=== PATIENT | female | born 1960 | race Caucasian/White ===

== ENCOUNTER → 2021-01-03 | Outpatient (REF) | payer MEDICARE, MEDICAID ==
[2021-01-03 18:20] LABS: AMORPHOUS SEDIMENT SMALL (NEGATIVE); BACTERIA, URINE AUTO NEGATIVE (NEGATIVE); MUCUS, URINE SMALL (NEGATIVE); RBC, URINE AUTO 1 /HPF (0-3); SQUAMOUS EPITHELIAL CELL UR AU 2 /HPF (0-6); WBC, URINE AUTO 2 /HPF (0-3)
== END ==
LOC: M SMT 16:50
PROVIDERS: ATTEND Specialist
DX: N39.46 Mixed incontinence (principal)
CPT/HCPCS: 81015; 87088; G0463

== ENCOUNTER → 2021-05-09 | Outpatient (CLI) | payer MEDICARE, MEDICAID | LOC: M RAD 10:44 | PROVIDERS: ATTEND Internal Medicine Cardiovascular Disease | DX: R06.02 Shortness of breath (principal); R55 Syncope and collapse ==

== ENCOUNTER → 2021-11-28 | Outpatient (CLI) | payer MEDICARE, MEDICAID ==
[~2021-11-28] MED LIST: ISOVUE-300 61% 50ML VIAL As Ordered ONE; LIDOCAINE 1% MDV 20ML VIAL As Ordered ONE
== END ==
LOC: M RADPRO 08:55
PROVIDERS: ATTEND Physician Assistant
DX: R93.7 Abnormal findings on diagnostic imaging of other parts of musculoskeletal system (principal); M17.11 Unilateral primary osteoarthritis, right knee
CPT/HCPCS: 27369; 73580; 73701; Q9967

== ENCOUNTER → 2021-12-14 | Outpatient (CLI) | payer MEDICARE, MEDICAID ==
[~2021-12-14] MED LIST changes: +ADV250INH INH; +ALBU2.5V10 INH; +AMIT50TA PO; +AMLO1TAB24 PO; +ATOR80TA59 PO; +BUSP5TA PO; +DOXE10CO2 PO; +EFFE75CA2 PO; +FLUT15.820; +HYDR-3490 PO; +ISOS1TAB35 PO; -ISOVUE-300 61% 50ML VIAL As Ordered ONE; -LIDOCAINE 1% MDV 20ML VIAL As Ordered ONE; +LORA-243 PO; +MAGN200T PO; +METO1TAB7 PO; +NAPR-885 PO; +OMEP1CAP73 PO; +PROAAER10 INH; +SYNT50TA PO; +UBRO50TA PO
== END ==
LOC: M LABSMTC 10:19
PROVIDERS: ATTEND Anesthesiology
DX: Z11.52 Encounter for screening for COVID-19 (principal); Z20.822 Contact with and (suspected) exposure to COVID-19

== ENCOUNTER 2021-12-19 11:44 | Day surgery (SDC) | payer MEDICARE, MEDICAID ==
[~2021-12-19] VITALS: Ht 157.5 cm; Wt 102.0 kg
[~2021-12-19 11:44] MED LIST changes: +ceFAZolin SOD 2 GM in IV 1 EA IV ONE
[2021-12-19] MEDS ORDERED: LR 1,000 ML IV SCH (12:10)
[2021-12-19] MEDS ORDERED: LIDOCAINE 2% 100MG/5ML SDV (FOR ANES.) As Ordered ONE (14:46)
[2021-12-19] MEDS ORDERED: propofoL 200 MG/20 ML VIAL As Ordered ONE ×3 (14:46→16:39)
[2021-12-19] MEDS ORDERED: MIDAZOLAM INJ 2MG/2ML VIAL (J2250 PER 1MG) As Ordered ONE (14:46)
[2021-12-19] MEDS ORDERED: fentaNYL 100 MCG/2 ML INJECTION As Ordered ONE (14:46)
[2021-12-19] MEDS ORDERED: LIDOCAINE 1% SDV 30ML VIAL As Ordered ONE (14:47)
[2021-12-19] MEDS ORDERED: dexameTHASONE 4 MG/ML 1ML VIAL (J1100 PER 1MG) As Ordered ONE (15:59)
[2021-12-19] MEDS ORDERED: diphenhydrAMINE 50MG/ML VIAL (J1200) As Ordered ONE (16:00)
[2021-12-19] MEDS ORDERED: GENTAMICIN SULF 80MG/2ML VIAL As Ordered ONE (16:30)
[2021-12-19] MEDS ORDERED: KETOROLAC 60MG 2ML VIAL As Ordered ONE (17:05)
[2021-12-19 18:03] VITALS: BP 143/72
== END 2021-12-19 18:12 | disposition home or self-care (01) ==
LOC: M SDC 11:44
PROVIDERS: ATTEND Specialist
DX: R32 Unspecified urinary incontinence (principal); E07.9 Disorder of thyroid, unspecified; G43.909 Migraine, unspecified, not intractable, without status migrainosus; N18.2 Chronic kidney disease, stage 2 (mild); J45.909 Unspecified asthma, uncomplicated; E78.5 Hyperlipidemia, unspecified; I12.9 Hypertensive chronic kidney disease with stage 1 through stage 4 chronic kidney disease, or unspecified chronic kidney disease; Z87.891 Personal history of nicotine dependence; H81.10 Benign paroxysmal vertigo, unspecified ear; M85.80 Other specified disorders of bone density and structure, unspecified site; F31.9 Bipolar disorder, unspecified; M25.561 Pain in right knee; Z88.5 Allergy status to narcotic agent; Z79.899 Other long term (current) drug therapy; Z79.51 Long term (current) use of inhaled steroids; Z79.1 Long term (current) use of non-steroidal anti-inflammatories (NSAID); Z79.890 Hormone replacement therapy
CPT/HCPCS: 64585; 64590; 76000; 95971; C1778; C1785; C1787; C1897; J0690; J1100; J1200; J1580; J1885; J2250; J3010

== ENCOUNTER → 2022-03-24 | Outpatient (CLI) | payer MEDICARE, MEDICAID ==
[~2022-03-24] MED LIST changes: -ceFAZolin SOD 2 GM in IV 1 EA IV ONE
== END ==
LOC: M SLEEP HO 11:50
PROVIDERS: ATTEND Internal Medicine Cardiovascular Disease
DX: I27.23 Pulmonary hypertension due to lung diseases and hypoxia (principal)

== ENCOUNTER → 2022-09-18 | Outpatient (CLI) | payer MEDICARE, MEDICAID | LOC: M PLARAD 12:41 | PROVIDERS: ATTEND Physician Assistant | DX: M25.461 Effusion, right knee (principal); M94.261 Chondromalacia, right knee; M17.11 Unilateral primary osteoarthritis, right knee; M76.891 Other specified enthesopathies of right lower limb, excluding foot; S83.411A Sprain of medial collateral ligament of right knee, initial encounter; S83.241A Other tear of medial meniscus, current injury, right knee, initial encounter ==

== ENCOUNTER → 2022-11-27 | Outpatient (CLI) | payer MEDICARE, MEDICAID | LOC: M SOG 14:37 | PROVIDERS: ATTEND Orthopaedic Surgery | DX: M17.9 Osteoarthritis of knee, unspecified (principal); M25.461 Effusion, right knee; M25.462 Effusion, left knee ==

== ENCOUNTER → 2023-07-14 | Outpatient (CLI) | payer MEDICARE, MEDICAID | LOC: M SOG 08:04 | PROVIDERS: ATTEND Orthopaedic Surgery | DX: M17.11 Unilateral primary osteoarthritis, right knee (principal) ==

== ENCOUNTER → 2023-07-26 | Outpatient (CLI) | payer MEDICARE, MEDICAID | LOC: M RAD 16:16 | PROVIDERS: ATTEND Orthopaedic Surgery | DX: M17.11 Unilateral primary osteoarthritis, right knee (principal) ==

== ENCOUNTER 2023-08-09 09:02 | Observation (INO) | payer MEDICARE, MEDICAID ==
[~2023-08-09] VITALS: Ht 157.5 cm; Wt 95.1 kg
[2023-08-09] MEDS: ROPIVA 100MG/KETOR 15MG/EPINEPHRINE 0.3MG IN NS 50ML SYRINGE PA ONE (06:00)
[~2023-08-09 09:02] MED LIST changes: +BAYE81TA10 PO; +BUSP30TA PO; +DOXE10CA PO; +LEVO50TA5 PO; +MUCI600T31 PO; +OMEP-173 PO; +OMEP40CA5 PO; +SUMA50TA2 PO; +TRAM50TA2 PO; +TREL1AER INH; +VENL150C43 PO; +VENTAER INH
[2023-08-09] MEDS ORDERED: LR 1,000 ML IV SCH (09:05)
[2023-08-09] MEDS ORDERED: fentaNYL 100 MCG/2 ML INJECTION As Ordered ONE (10:31)
[2023-08-09] MEDS ORDERED: MIDAZOLAM INJ 2MG/2ML VIAL As Ordered ONE (10:31)
[2023-08-09] MEDS ORDERED: propofoL 200 MG/20 ML VIAL As Ordered ONE (10:32)
[2023-08-09] MEDS ORDERED: ONDANSETRON 4MG 2ML VIAL As Ordered ONE (10:32)
[2023-08-09] MEDS ORDERED: LIDOCAINE 2% 100MG/5ML SDV (FOR ANES.) As Ordered ONE (10:32)
[2023-08-09] MEDS ORDERED: SUGAMMADEX SODIUM 500 MG/5 ML VIAL (BRIDION) As Ordered ONE (10:32)
[2023-08-09] MEDS ORDERED: ROCURONIUM BROMIDE 50MG/5ML VIAL As Ordered ONE (10:32)
[2023-08-09] MEDS ORDERED: HYDROmorphone HCL 2MG/ML 1ML VIAL As Ordered ONE (10:34)
[2023-08-09] MEDS: ceFAZolin SOD 2 GM in IV 1 EA IV ONE (12:00)
[2023-08-09] MEDS: TRANEXAMIC ACID 100 MG/ML 10ML VIAL As Ordered ONE (12:05)
[2023-08-09] MEDS ORDERED: ePHEDrine SULFATE 25 MG/5 ML(5MG/ML) SYRINGE As Ordered ONE (12:11)
[2023-08-09] MEDS ORDERED: PHENYLephrine 500MCG 5ML (100MCG/ML) SYRINGE As Ordered ONE (12:11)
[2023-08-09] MEDS ORDERED: VASOPRESSIN INJ 20UNITS/ML 1ML VIAL As Ordered ONE (12:11)
[2023-08-09] MEDS ORDERED: PHENYLEPHRINE 10MG/ML 1ML VIAL As Ordered ONE (12:29)
[2023-08-09] MEDS ORDERED: SENNA 8.6 MG TAB (SENOKOT) PO PRN (14:30)
[2023-08-09] MEDS ORDERED: ONDANSETRON 4MG 2ML VIAL IV PRN ×2 (14:30→15:00)
[2023-08-09] MEDS ORDERED: MORPHINE 4 MG/ML 1ML VIAL IV PRN (14:35)
[2023-08-09] MEDS ORDERED: ALBUTEROL 90 MCG/ACT 8GM HFA INHALER INH PRN (14:35)
[2023-08-09] MEDS ORDERED: ACETAMINOPHEN TAB 650MG DOSE (2X325MG) PO PRN (14:35)
[2023-08-09] MEDS ORDERED: guaiFENesin ER TABLET 600 MG TAB PO PRN (14:35)
[2023-08-09] MEDS: LR 1,000 ML IV SCH ×2 (15:00→18:10)
[2023-08-09] MEDS ORDERED: fentaNYL 100 MCG/2 ML INJECTION IV PRN (15:00)
[2023-08-09 16:38] VITALS: BP 100/62; TEMP 97.2; O2SAT 94
[2023-08-09] MEDS: HYDROMORPHONE HCL 0.5 MG/ 0.5 ML SYRINGE IV PRN (16:41)
[2023-08-09 17:15] VITALS: BP 103/60; TEMP 98.1; O2SAT 90
[2023-08-09 17:45] VITALS: BP 102/58; TEMP 97.9; O2SAT 92
[2023-08-09] MEDS: ACETAMINOPHEN TAB 650MG DOSE (2X325MG) PO SCH (18:09)
[2023-08-09 18:45] VITALS: BP 106/56; TEMP 98.2; O2SAT 92
[2023-08-09 19:43] VITALS: BP 117/92; TEMP 97.9; O2SAT 93
[2023-08-09] MEDS: ASPIRIN 81MG ENTERIC TABLET PO SCH (20:18)
[2023-08-09] MEDS: ceFAZolin SOD 2 GM in IV 1 EA IV SCH (20:18)
[2023-08-09] MEDS: OMEPRAZOLE 20MG CAP PO SCH (20:18)
[2023-08-09] MEDS: METOPROLOL SUCC (TopROL XL) 50MG **XL** TAB PO SCH (20:19)
[2023-08-09] MEDS: DOCUSATE SODIUM 100MG CAPSULE PO SCH (20:19)
[2023-08-09] MEDS ORDERED: NAPROXEN 250 MG TAB PO SCH (21:00)
[2023-08-09] MEDS: ALBUTEROL SULFATE 2.5MG/0.5ML INH NEB SOLN INH SCH (21:40)
[2023-08-09] MEDS: AMITRIPTYLINE 50 MG TAB PO SCH (21:50)
[2023-08-09] MEDS: busPIRone 5 MG TAB PO SCH (21:50)
[2023-08-09 23:20] VITALS: BP 119/57; TEMP 98.1; O2SAT 93
[2023-08-10] MEDS: LEVOTHYROXINE 50MCG TABLET (0.05MG) PO SCH (05:10)
[2023-08-10 05:11] VITALS: BP 116/58; TEMP 98.1; O2SAT 92
[2023-08-10 05:55] LABS: HEMATOCRIT 30.5 % (36.0-47.0); HEMOGLOBIN 9.8 g/dl (12.0-15.5); MEAN CORPUSCULAR HEMOGLOBIN 28.3 pg (27.0-33.0); MEAN CORPUSCULAR HGB CONC 32.1 g/dl (32.0-36.5); MEAN CORPUSCULAR VOLUME 88.2 fl (80.0-96.0); PLATELET COUNT, AUTOMATED 307 10^3/uL (150-450); RED BLOOD COUNT 3.46 10^6/uL (4.00-5.40); WHITE BLOOD COUNT 14.6 10^3/uL (4.0-10.0)
[2023-08-10] MEDS: ADVAIR HFA 115/21MCG INHALER INH SCH (07:34)
[2023-08-10 08:16] LABS: ALBUMIN 2.7 G/DL (3.2-5.2); ALKALINE PHOSPHATASE 97 U/L (46-116); ALT/SGPT < 9 U/L (7.0-40); AST/SGOT < 8 U/L (<34); BILIRUBIN,TOTAL 0.2 MG/DL (0.3-1.2); BLOOD UREA NITROGEN 20 MG/DL (9-23); CALCIUM LEVEL 8.6 MG/DL (8.3-10.6); CARBON DIOXIDE LEVEL 24 MMOL/L (20-31); CHLORIDE LEVEL 109 MMOL/L (98-107); GLOMERULAR FILTRATION RATE > 60.0 (>45); GLUCOSE, FASTING 122 MG/DL (74-106); PHOSPHORUS LEVEL 3.6 MG/DL (2.4-5.1); POTASSIUM SERUM 4.3 MMOL/L (3.5-5.1); SODIUM LEVEL 138 MMOL/L (136-145); TOTAL PROTEIN 5.3 G/DL (5.7-8.2)
[2023-08-10] MEDS ORDERED: CEFA500C2 PO (09:11)
[2023-08-10] MEDS ORDERED: ASPI81TAEC PO (09:11)
[2023-08-10] MEDS: FERROUS SULFATE 325MG TAB PO SCH (09:21)
[2023-08-10] MEDS: ASCORBIC ACID 500 MG TAB PO SCH (09:21)
[2023-08-10] MEDS: VENLAFAXINE **XR** 75MG CAPSULE PO SCH (09:22)
[2023-08-10 09:23] VITALS: BP 119/72
[2023-08-10] MEDS: amLODIPine 5 MG TAB PO SCH (09:23)
[2023-08-10] MEDS ORDERED: TRAM50TA2 PO (09:24)
[2023-08-10] MEDS: NAPROXEN 250 MG TAB PO SCH (09:27)
[2023-08-10 10:57] VITALS: BP 116/53; TEMP 98.6; O2SAT 90
[2023-08-10] MEDS ORDERED: ATORVASTATIN 20 MG TAB PO SCH (21:00)
== END 2023-08-10 12:15 | disposition home or self-care (01) ==
LOC: M SDC 09:02 → M MS5PR 09:03
PROVIDERS: ADMIT Orthopaedic Surgery; ATTEND Orthopaedic Surgery
DX: M17.11 Unilateral primary osteoarthritis, right knee (principal); R07.9 Chest pain, unspecified; I25.2 Old myocardial infarction; F43.10 Post-traumatic stress disorder, unspecified; N28.9 Disorder of kidney and ureter, unspecified; Z88.5 Allergy status to narcotic agent; Z79.899 Other long term (current) drug therapy; Z87.891 Personal history of nicotine dependence
CPT/HCPCS: 27447; 36415; 73560; 80053; 80069; 85027; 87635; 88300; 94640; 96374; 96376; 97110; 97161; 97165; 97530; 97535; C1713; C1776; G0378; J0690; J1100; J1170; J2250; J2371; J2405; J2598; J3010

== ENCOUNTER → 2023-08-23 | Outpatient (CLI) | payer MEDICARE, MEDICAID ==
[~2023-08-23] MED LIST changes: +ASPI81TAEC PO; +CEFA500C2 PO
== END ==
LOC: M SOG 07:52
PROVIDERS: ATTEND Orthopaedic Surgery
DX: Z47.1 Aftercare following joint replacement surgery (principal); Z96.651 Presence of right artificial knee joint

== ENCOUNTER 2023-09-05 04:52 | Emergency (ER) | payer MEDICARE, MEDICAID ==
[~2023-09-05] VITALS: Ht 157.5 cm; Wt 94.0 kg
[2023-09-05] MEDS: NS 1,000 ML IV ONE (08:14)
[2023-09-05 08:40] LABS: BASO # 0.1 10^3/uL (0.0-0.2); BASO % 0.5 % (0.0-1.0); EOS # 0.1 10^3/uL (0.0-0.5); EOS % 0.8 % (0.0-3.0); HEMOGLOBIN 12.6 g/dl (12.0-15.5); LYMPH # 2.9 10^3/uL (1.5-5.0); LYMPH % 22.3 % (24.0-44.0); MEAN CORPUSCULAR HEMOGLOBIN 28.2 pg (27.0-33.0); MEAN CORPUSCULAR HGB CONC 32.3 g/dl (32.0-36.5); MEAN CORPUSCULAR VOLUME 87.2 fl (80.0-96.0); MONO # 1.1 10^3/uL (0.0-0.8); MONO % 8.2 % (2.0-8.0); NEUTROPHILS # 8.8 10^3/uL (1.5-8.5); NEUTROPHILS % 67.6 % (36.0-66.0); PLATELET COUNT, AUTOMATED 555 10^3/uL (150-450); RED BLOOD COUNT 4.47 10^6/uL (4.00-5.40)
[2023-09-05 09:05] LABS: LIPASE 31 U/L (12-53)
[2023-09-05 09:07] LABS: ALBUMIN 3.7 G/DL (3.2-5.2); ALKALINE PHOSPHATASE 153 U/L (46-116); ALT/SGPT 25 U/L (7.0-40); AST/SGOT 24 U/L (<34); BILIRUBIN,DIRECT 0.2 MG/DL (<0.4); BILIRUBIN,TOTAL 0.5 MG/DL (0.3-1.2); BLOOD UREA NITROGEN 22 MG/DL (9-23); CARBON DIOXIDE LEVEL 24 MMOL/L (20-31); CHLORIDE LEVEL 98 MMOL/L (98-107); CREATININE FOR GFR 0.85 MG/DL (0.55-1.30); GLOMERULAR FILTRATION RATE > 60.0 (>45); GLUCOSE, FASTING 115 MG/DL (74-106); POTASSIUM SERUM 3.7 MMOL/L (3.5-5.1); SODIUM LEVEL 134 MMOL/L (136-145); TOTAL PROTEIN 7.3 G/DL (5.7-8.2)
[2023-09-05] MEDS ORDERED: MIRA3350 PO (10:30)
[2023-09-05] MEDS ORDERED: CEFD1CAP9 PO (10:30)
[2023-09-05] MEDS: CEFDINIR 300 MG CAP (OMNICEF) PO ONE (10:43)
[2023-09-05 10:50] VITALS: BP 159/71; TEMP 99.3; O2SAT 100
== END 2023-09-05 10:53 | disposition home or self-care (01) ==
LOC: M ED 04:52
DX: K59.00 Constipation, unspecified (principal); N39.0 Urinary tract infection, site not specified; Z79.899 Other long term (current) drug therapy; Z88.5 Allergy status to narcotic agent

== ENCOUNTER 2023-09-22 16:00 | Observation (INO) | payer MEDICARE, MEDICAID ==
[~2023-09-22] VITALS: Ht 157.5 cm; Wt 86.1 kg
[~2023-09-22 16:00] MED LIST changes: +CEFD1CAP9 PO; +MIRA3350 PO
[2023-09-22] MEDS: NS 1,000 ML IV ONE (16:44)
[2023-09-22] MEDS: METOCLOPRAMIDE INJ 10MG/2ML VIAL IV ONE (16:44)
[2023-09-22] MEDS: KETOROLAC 30 MG/ML 1ML VIAL IV ONE (16:46)
[2023-09-22] MEDS: diphenhydrAMINE 50MG/ML VIAL IV ONE (16:47)
[2023-09-22 17:36] LABS: BASO % 0.3 % (0.0-1.0); EOS # 0.1 10^3/uL (0.0-0.5); EOS % 0.6 % (0.0-3.0); HEMATOCRIT 35.5 % (36.0-47.0); LYMPH # 2.3 10^3/uL (1.5-5.0); LYMPH % 21.9 % (24.0-44.0); MEAN CORPUSCULAR HEMOGLOBIN 28.8 pg (27.0-33.0); MEAN CORPUSCULAR HGB CONC 33.8 g/dl (32.0-36.5); MEAN CORPUSCULAR VOLUME 85.1 fl (80.0-96.0); MONO # 1.2 10^3/uL (0.0-0.8); MONO % 11.8 % (2.0-8.0); NEUTROPHILS # 6.8 10^3/uL (1.5-8.5); PLATELET COUNT, AUTOMATED 459 10^3/uL (150-450); RED BLOOD COUNT 4.17 10^6/uL (4.00-5.40); WHITE BLOOD COUNT 10.4 10^3/uL (4.0-10.0)
[2023-09-22 17:41] LABS: ALBUMIN 3.7 G/DL (3.2-5.2); ALKALINE PHOSPHATASE 125 U/L (46-116); ALT/SGPT 29 U/L (7.0-40); AST/SGOT 25 U/L (<34); BILIRUBIN,DIRECT 0.3 MG/DL (<0.4); BILIRUBIN,TOTAL 0.7 MG/DL (0.3-1.2); BLOOD UREA NITROGEN 13 MG/DL (9-23); CALCIUM LEVEL 9.8 MG/DL (8.3-10.6); CARBON DIOXIDE LEVEL 30 MMOL/L (20-31); CHLORIDE LEVEL 93 MMOL/L (98-107); CREATININE FOR GFR 0.85 MG/DL (0.55-1.30); GLOMERULAR FILTRATION RATE > 60.0 (>45); GLUCOSE, FASTING 89 MG/DL (74-106); POTASSIUM SERUM 2.9 MMOL/L (3.5-5.1); SODIUM LEVEL 132 MMOL/L (136-145); TOTAL PROTEIN 6.7 G/DL (5.7-8.2)
[2023-09-22] MEDS: POTASSIUM CHLORIDE 10MEQ SR TABLET PO ONE ×2 (17:53→23:17)
[2023-09-22] MEDS: KCL 10MEQ/100ML SWI (KRUN) 10 MEQ in IV 1 EA IV ONE ×2 (17:53→21:16)
[2023-09-22] MEDS ORDERED: ACETAMINOPHEN TAB 650MG DOSE (2X325MG) PO PRN (21:35)
[2023-09-22] MEDS ORDERED: ONDANSETRON 4MG 2ML VIAL IV PRN (21:40)
[2023-09-22] MEDS ORDERED: ASPI-615 PO (22:11)
[2023-09-22] MEDS ORDERED: HOME MED LIST COMPLETE! XX SCH (22:15)
[2023-09-22 23:12] VITALS: BP 142/72; TEMP 98.1; O2SAT 95
[2023-09-22] MEDS: KCL 10MEQ/100ML SWI (KRUN) 10 MEQ in IV 1 EA IV SCH (23:18)
[2023-09-23] MEDS ORDERED: AMITRIPTYLINE 50 MG TAB PO PRN (01:45)
[2023-09-23] MEDS ORDERED: ALBUTEROL SULFATE 2.5MG/0.5ML INH NEB SOLN INH PRN (01:45)
[2023-09-23] MEDS ORDERED: ALBUTEROL 90 MCG/ACT 8GM HFA INHALER INH PRN (01:45)
[2023-09-23 02:50] LABS: BLOOD UREA NITROGEN 16 MG/DL (9-23); CALCIUM LEVEL 9.5 MG/DL (8.3-10.6); CARBON DIOXIDE LEVEL 28 MMOL/L (20-31); CHLORIDE LEVEL 100 MMOL/L (98-107); CREATININE FOR GFR 0.86 MG/DL (0.55-1.30); GLOMERULAR FILTRATION RATE > 60.0 (>45); GLUCOSE, FASTING 82 MG/DL (74-106); POTASSIUM SERUM 4.1 MMOL/L (3.5-5.1); SODIUM LEVEL 134 MMOL/L (136-145)
[2023-09-23 04:00] VITALS: BP 138/74; TEMP 97.9; O2SAT 96
[2023-09-23 06:41] VITALS: BP 124/64; TEMP 98.2; O2SAT 96
[2023-09-23 07:46] LABS: HEMATOCRIT 34.4 % (36.0-47.0); HEMOGLOBIN 11.7 g/dl (12.0-15.5); MEAN CORPUSCULAR HEMOGLOBIN 28.9 pg (27.0-33.0); MEAN CORPUSCULAR VOLUME 84.9 fl (80.0-96.0); PLATELET COUNT, AUTOMATED 431 10^3/uL (150-450); RED BLOOD COUNT 4.05 10^6/uL (4.00-5.40); WHITE BLOOD COUNT 9.5 10^3/uL (4.0-10.0)
[2023-09-23 08:00] VITALS: BP 146/64; TEMP 97.9; O2SAT 97
[2023-09-23 08:39] LABS: BLOOD UREA NITROGEN 16 MG/DL (9-23); CALCIUM LEVEL 9.1 MG/DL (8.3-10.6); CARBON DIOXIDE LEVEL 26 MMOL/L (20-31); CHLORIDE LEVEL 101 MMOL/L (98-107); CREATININE FOR GFR 0.76 MG/DL (0.55-1.30); GLOMERULAR FILTRATION RATE > 60.0 (>45); GLUCOSE, FASTING 80 MG/DL (74-106); MAGNESIUM LEVEL 1.8 MG/DL (1.8-2.4); SODIUM LEVEL 134 MMOL/L (136-145)
[2023-09-23] MEDS: ENOXAPARIN 40MG/0.4ML SYRINGE (J1650 PER 10MG) SC SCH (09:38)
[2023-09-23] MEDS: ASPIRIN 81MG ENTERIC TABLET PO SCH (09:41)
[2023-09-23] MEDS: ATORVASTATIN 20 MG TAB PO SCH (09:42)
[2023-09-23 09:44] VITALS: BP 144/82
[2023-09-23] MEDS: METOPROLOL SUCC (TopROL XL) 50MG **XL** TAB PO SCH (09:44)
[2023-09-23] MEDS: busPIRone 10 MG TAB PO SCH (09:45)
[2023-09-23] MEDS: LEVOTHYROXINE 50MCG TABLET (0.05MG) PO SCH (09:47)
[2023-09-23] MEDS: VENLAFAXINE **XR** 75MG CAPSULE PO SCH (09:47)
[2023-09-23] MEDS: OMEPRAZOLE 20MG CAP PO SCH (09:47)
[2023-09-23] MEDS: amLODIPine 5 MG TAB PO SCH (09:54)
[2023-09-23] MEDS: DOCUSATE SODIUM 100MG CAPSULE PO SCH (09:54)
[2023-09-23] MEDS: MIRALAX *UNIT DOSE* 17GM PACKET PO SCH (10:18)
[2023-09-23] MEDS: NS 1,000 ML IV SCH (10:18)
[2023-09-23] MEDS ORDERED: COLA100C5 PO (10:33)
[2023-09-23] MEDS ORDERED: SENO8.6T5 PO (10:33)
[2023-09-23] MEDS ORDERED: MIRA3350 PO (10:34)
[2023-09-23] MEDS ORDERED: CLOT1CRE56 TOP (19:11)
[2023-09-23] MEDS ORDERED: SENNA 8.6 MG TAB (SENOKOT) PO SCH (21:00)
== END 2023-09-23 12:22 | disposition home or self-care (01) ==
LOC: M ED 16:00 → M ED INP 16:01 → ENRESERV 22:35 → M MSPAV 23:34
PROVIDERS: ADMIT Preventive Medicine Undersea and Hyperbaric Medicine; ATTEND Internal Medicine
DX: E87.6 Hypokalemia (principal); K59.04 Chronic idiopathic constipation; G43.909 Migraine, unspecified, not intractable, without status migrainosus; L08.9 Local infection of the skin and subcutaneous tissue, unspecified; I10 Essential (primary) hypertension; J45.909 Unspecified asthma, uncomplicated; F99 Mental disorder, not otherwise specified; R11.0 Nausea; R14.0 Abdominal distension (gaseous); Z90.710 Acquired absence of both cervix and uterus; Z96.82 Presence of neurostimulator; Z88.5 Allergy status to narcotic agent; Z79.899 Other long term (current) drug therapy; Z79.82 Long term (current) use of aspirin; Z79.51 Long term (current) use of inhaled steroids; Z79.890 Hormone replacement therapy
CPT/HCPCS: 36415; 74018; 80047; 80048; 80076; 83735; 85025; 85027; 93005; 93041; 96361; 96365; 96366; 96372; 96375; 97116; 97161; 99285; G0378; J1200; J1650; J1885; J2765

== ENCOUNTER → 2024-04-03 | Outpatient (CLI) | payer MEDICARE, MEDICAID ==
[~2024-04-03] MED LIST changes: +ASPI-615 PO; +CLOT1CRE56 TOP; +COLA100C5 PO; +SENO8.6T5 PO
== END ==
LOC: M SOG 07:53
PROVIDERS: ATTEND Orthopaedic Surgery
DX: Z96.651 Presence of right artificial knee joint (principal); Z47.1 Aftercare following joint replacement surgery

== ENCOUNTER → 2024-10-03 | Outpatient (CLI) | payer MEDICARE, MEDICAID ==
[~2024-10-03] MED LIST changes: -ADV250INH INH; +ADVA1AER9 INH
== END ==
LOC: M SOG 07:13
PROVIDERS: ATTEND Orthopaedic Surgery
DX: Z96.653 Presence of artificial knee joint, bilateral (principal)